=== PATIENT | male | born 1960 | race Two or more races ===

== ENCOUNTER 2021-02-07 12:24 | Emergency (ER) | payer MEDICARE, MEDICAID ==
[~2021-02-07] VITALS: Ht 175.3 cm; Wt 85.3 kg
[2021-02-07] MEDS ORDERED: DEXTROSE 50% SYRINGE 50 ML IV ONE (12:30)
[2021-02-07] MEDS ORDERED: DEXTROSE (25%) 10 ML SYRG IV ONE (12:30)
[2021-02-07] MEDS ORDERED: MIDAZOLAM DRIP 50 mg/50mL 50 ML IV ONE (12:34)
[2021-02-07] MEDS ORDERED: MIDAZOLAM HCL 5 MG/ML-1ML VIAL ONE (12:34)
[2021-02-07] MEDS ORDERED: ETOMIDATE (2MG/ML) 20ML VIAL IV ONE ×2 (12:34→12:41)
[2021-02-07] MEDS ORDERED: SUCCINYLCHOLINE CHLORIDE 20 MG/ML 10ML VIAL IV ONE (12:34)
[2021-02-07] MEDS ORDERED: MIDAZOLAM HCL 5 MG/ML-1ML VIAL IV ONE (12:40)
[2021-02-07] MEDS ORDERED: fentaNYL Drip 2500mCg/250mlNS 250 ML IV SCH (13:00)
[2021-02-07] MEDS ORDERED: MIDAZOLAM DRIP 50 mg/50mL 50 ML IV SCH ×2 (13:00)
[2021-02-07 13:30] VITALS: BP 132/70
== END 2021-02-07 14:10 | disposition home or self-care (01) ==
LOC: ER 12:24 → EDBD 12:24 → ER 14:10
DX: S06.309A Unspecified focal traumatic brain injury with loss of consciousness of unspecified duration, initial encounter (principal); R41.82 Altered mental status, unspecified; I12.0 Hypertensive chronic kidney disease with stage 5 chronic kidney disease or end stage renal disease; N18.6 End stage renal disease; F17.210 Nicotine dependence, cigarettes, uncomplicated; Z99.2 Dependence on renal dialysis; X58.XXXA Exposure to other specified factors, initial encounter; Y93.89 Activity, other specified; Y92.89 Other specified places as the place of occurrence of the external cause; Y99.8 Other external cause status
CPT/HCPCS: 31500; 71045; 82962; 96365; 96375; 99285; J0330; J1953; J2250; J7042; J7060; 94002